=== PATIENT | female | born 1930 | race African-American/Black ===

== ENCOUNTER 2018-11-04 17:21 | Inpatient (IN) | payer MEDICAID, MEDICARE, OTHER ==
[~2018-11-04] VITALS: Ht 162.6 cm; Wt 82.6 kg
[2018-11-04] MEDS ORDERED: ACETAMINOPHEN 325MG TABLET PO STA (17:58)
[2018-11-04] MEDS ORDERED: SODIUM CHLORIDE 0.9% 1,000 ML IV ONE (17:58)
[2018-11-04] MEDS ORDERED: VANCOMYCIN 1 G PREMIX 200 ML IV ONE (18:00)
[2018-11-04] MEDS ORDERED: PIPERACILLIN/TAZ 3.375G PREMIX 50 ML IV ONE (18:00)
[2018-11-04] MEDS ORDERED: SODIUM CHLORIDE 0.9% 1000ML BAG (SEPSIS BOLUS) IV ONE (18:00)
[2018-11-04 18:44] LABS: CLARITY URINE CLEAR (CLEAR); COLOR URINE YELLOW (YELLOW); KETONES URINE TRACE (NEGATIVE); LEUKOCYTE ESTERASE URINE TRACE (NEGATIVE); NITRITE URINE NEGATIVE (NEGATIVE); OCCULT BLOOD URINE NEGATIVE (NEGATIVE); PROTEIN URINE NEGATIVE (NEGATIVE); SPECIFIC GRAVITY URINE 1.015 (1.005-1.030)
[2018-11-04 18:53] LABS: BASOPHILS % 0.8 % (0.0-2.0); EOSINOPHILS % 0.9 % (0.0-5.0); HEMATOCRIT. 22.9 % (36.0-48.0); HEMOGLOBIN. 7.2 g/dL (12.0-16.0); LYMPHOCYTES % 33.3 % (20.0-50.0); MEAN CORPUSCULAR HEMOGLOBIN 25.8 pg (28.0-32.0); MEAN CORPUSCULAR VOLUME 81.8 fL (81.0-99.0); MEAN PLATELET VOLUME 9.1 fl (7.4-10.4); MONOCYTES % 6.4 % (2.0-8.0); NEUTROPHILS % 58.6 % (40.0-76.0); PLATELET 148 x1000/uL (130-400); RED CELL DISTRIBUTION WIDTH 21.4 % (11.6-14.6)
[2018-11-04 18:57] LABS: CHLORIDE 106 mEq/L (98-107)
[2018-11-04 18:58] LABS: PROTHROMBIN TIME 10.7 sec (9.6-11.0)
[2018-11-04] MEDS ORDERED: HYDRALAZINE 20MG/ML VIAL IV ONE (22:30)
[2018-11-04 23:25] VITALS: BP 186/79
[2018-11-05] VITALS: BP 186/79
[2018-11-05] MEDS: CEFTRIAXONE 1 G PREMIX 50 ML IV SCH ×2 (03:40→14:32)
[2018-11-05] MEDS: CLONIDINE 0.1MG TABLET PO PRN ×2 (03:40→09:30)
[2018-11-05 04:00] VITALS: BP 159/75
[2018-11-05 08:00] VITALS: BP 173/85
[2018-11-05 08:35] LABS: CHLORIDE 107 mEq/L (98-107)
[2018-11-05] MEDS ORDERED: HEPARIN 5000 UNITS/ML VIAL SUBCUT SCH (09:00)
[2018-11-05] MEDS ORDERED: POTASSIUM CHLORIDE 20MEQ/PACKET PO NR (10:00)
[2018-11-05 11:06] LABS: HEMATOCRIT. 36.4 % (36.0-48.0); MEAN CORPUSCULAR HEMOGLOBIN 25.9 pg (28.0-32.0); MEAN CORPUSCULAR VOLUME 80.5 fL (81.0-99.0); MEAN PLATELET VOLUME 9.5 fl (7.4-10.4); PLATELET 275 x1000/uL (130-400); RED BLOOD CELL COUNT 4.52 mill/uL (4.2-5.4); RED CELL DISTRIBUTION WIDTH 22.1 % (11.6-14.6)
[2018-11-05 11:08] LABS: HEMOGLOBIN. 11.7 g/dL (12.0-16.0)
[2018-11-05 12:00] VITALS: BP 178/72
[2018-11-05 12:24] LABS: PLATELET ESTIMATE NORMAL
[2018-11-05] MEDS ORDERED: LORAZEPAM 2MG/ML CPJ IV NR (12:45)
[2018-11-05] MEDS ORDERED: DIGOXIN 500MCG/2ML AMP IV NR (15:00)
[2018-11-05 16:00] VITALS: BP 156/58
[2018-11-05] MEDS ORDERED: HYDRALAZINE 20MG/ML VIAL IV SCH (16:00)
[2018-11-05] MEDS: LOSARTAN POTASSIUM 100 MG TABLET PO SCH ×2 (16:00→16:58)
[2018-11-05] MEDS ORDERED: DIGOXIN 500MCG/2ML AMP IV ONE ×2 (18:30→22:30)
[2018-11-05 20:07] VITALS: BP 110/89
[2018-11-05] MEDS: AMLODIPINE 5MG TABLET PO SCH (21:00)
[2018-11-05] MEDS: HYDRALAZINE HCL 50MG TABLET PO SCH (21:04)
[2018-11-05] MEDS ORDERED: HYDRALAZINE HCL 50MG TABLET PO SCH (22:00)
[2018-11-05] MEDS: HYDRALAZINE 20MG/ML VIAL IV PRN (23:58)
[2018-11-06] VITALS (8 sets, daily range): BP systolic 129–191; BP diastolic 48–120
[2018-11-06] MEDS: CEFTRIAXONE 1 G PREMIX 50 ML IV SCH ×2 (03:05→15:32)
[2018-11-06] MEDS: HYDRALAZINE HCL 50MG TABLET PO SCH ×3 (06:10→21:38)
[2018-11-06] MEDS: AMLODIPINE 5MG TABLET PO SCH ×2 (08:28→21:00)
[2018-11-06] MEDS: LOSARTAN POTASSIUM 100 MG TABLET PO SCH (08:28)
[2018-11-06] MEDS ORDERED: HYDRALAZINE 20MG/ML VIAL IV NR (08:45)
[2018-11-06] MEDS: DEXTROSE 5% WATER 1,000 ML IV SCH (11:44)
[2018-11-06] MEDS: HYDRALAZINE 20MG/ML VIAL IV PRN (16:01)
[2018-11-06 17:01] LABS: HEMATOCRIT. 36.1 % (36.0-48.0); HEMOGLOBIN. 11.8 g/dL (12.0-16.0); MEAN CORPUSCULAR HEMOGLOBIN 26.3 pg (28.0-32.0); MEAN CORPUSCULAR VOLUME 80.5 fL (81.0-99.0); MEAN PLATELET VOLUME 9.6 fl (7.4-10.4); PLATELET 247 x1000/uL (130-400); RED BLOOD CELL COUNT 4.48 mill/uL (4.2-5.4); RED CELL DISTRIBUTION WIDTH 22.1 % (11.6-14.6)
[2018-11-06 17:23] LABS: CHLORIDE 109 mEq/L (98-107)
[2018-11-06] MEDS ORDERED: DIGOXIN 125MCG TABLET PO SCH (18:00)
[2018-11-07] VITALS: BP 134/60
[2018-11-07] MEDS ORDERED: LORAZEPAM 2MG/ML CPJ IV PRN (00:30)
[2018-11-07] MEDS: DEXTROSE 5% WATER 1,000 ML IV SCH ×2 (00:57→15:15)
[2018-11-07] MEDS: HYDRALAZINE HCL 50MG TABLET PO SCH (02:24)
[2018-11-07] MEDS: CEFTRIAXONE 1 G PREMIX 50 ML IV SCH ×2 (02:24→15:07)
[2018-11-07 04:00] VITALS: BP 145/75
[2018-11-07 08:16] VITALS: BP 170/66
[2018-11-07] MEDS: HYDRALAZINE 20MG/ML VIAL IV PRN ×2 (08:53→21:08)
[2018-11-07] MEDS: AMLODIPINE 5MG TABLET PO SCH ×2 (09:00→21:00)
[2018-11-07] MEDS: LOSARTAN POTASSIUM 100 MG TABLET PO SCH (09:00)
[2018-11-07 12:00] VITALS: BP 153/71
[2018-11-07 12:25] LABS: PLATELET ESTIMATE NORMAL
[2018-11-07] MEDS: HYDRALAZINE HCL 100MG TABLET PO SCH ×2 (14:00→21:11)
[2018-11-07] MEDS ORDERED: DIPHENHYDRAMINE 50MG/ML VIAL IV PRN (15:15)
[2018-11-07] MEDS ORDERED: IPRATROPIUM/ALBUTEROL 0.5-3(2.5)MG/3ML NEB HHN PRN (15:15)
[2018-11-07] MEDS ORDERED: HYDROCODONE/ACETAMINOPHEN 5/325MG TABLET PO PRN (15:15)
[2018-11-07] MEDS ORDERED: ONDANSETRON HCL 4MG/2ML INJ IV PRN (15:15)
[2018-11-07 16:00] VITALS: BP 140/87
[2018-11-07] MEDS ORDERED: METOPROLOL TARTRATE 25MG TABLET PO NR (16:00)
[2018-11-07 16:16] LABS: HEMATOCRIT 38.6 % (36.0-48.0); HEMOGLOBIN 12.3 g/dL (12.0-16.0); MEAN CORPUSCULAR HEMOGLOBIN 25.8 pg (28.0-32.0); PLATELET 252 x1000/uL (130-400); RED BLOOD CELL COUNT 4.77 mill/uL (4.2-5.4); RED CELL DISTRIBUTION WIDTH 22.4 % (11.6-14.6)
[2018-11-07 16:31] LABS: CHLORIDE 106 mEq/L (98-107)
[2018-11-07 16:37] LABS: LDL CHOLESTEROL 70 mg/dL (5-100)
[2018-11-07 16:38] LABS: HDL CHOLESTEROL 59 mg/dL (40-59)
[2018-11-07] MEDS: LORAZEPAM 2MG/ML CPJ IV PRN (18:22)
[2018-11-07] MEDS: DIGOXIN 500MCG/2ML AMP IV SCH (18:59)
[2018-11-07 20:00] VITALS: BP 159/77
[2018-11-07] MEDS: METOPROLOL TARTRATE 25MG TABLET PO SCH (21:00)
[2018-11-08] VITALS: BP 150/48
[2018-11-08] MEDS: CEFTRIAXONE 1 G PREMIX 50 ML IV SCH ×2 (02:57→15:16)
[2018-11-08 04:00] VITALS: BP 159/45
[2018-11-08] MEDS: DEXTROSE 5% WATER 1,000 ML IV SCH (05:11)
[2018-11-08] MEDS: HYDRALAZINE 20MG/ML VIAL IV PRN ×2 (05:16→14:12)
[2018-11-08] MEDS: HYDRALAZINE HCL 100MG TABLET PO SCH ×3 (05:17→21:31)
[2018-11-08 07:17] LABS: HEMATOCRIT 36.5 % (36.0-48.0); HEMOGLOBIN 11.8 g/dL (12.0-16.0); MEAN CORPUSCULAR HEMOGLOBIN 26.2 pg (28.0-32.0); MEAN CORPUSCULAR VOLUME 80.8 fL (81.0-99.0); PLATELET 275 x1000/uL (130-400); RED BLOOD CELL COUNT 4.52 mill/uL (4.2-5.4); RED CELL DISTRIBUTION WIDTH 22.4 % (11.6-14.6)
[2018-11-08 08:00] VITALS: BP 132/67
[2018-11-08] MEDS: METOPROLOL TARTRATE 25MG TABLET PO SCH ×2 (09:00→21:31)
[2018-11-08] MEDS: AMLODIPINE 5MG TABLET PO SCH ×2 (09:00→21:31)
[2018-11-08] MEDS: LOSARTAN POTASSIUM 100 MG TABLET PO SCH (09:00)
[2018-11-08] MEDS ORDERED: LIDOCAINE HCL 1% 20ML VIAL (Pyxis) INJ ONE (10:56)
[2018-11-08 12:00] VITALS: BP 155/46
[2018-11-08 16:00] VITALS: BP 131/47
[2018-11-08] MEDS: DEXT 5%/0.9% NACL 1,000 ML IV SCH (17:16)
[2018-11-08] MEDS: DIGOXIN 500MCG/2ML AMP IV SCH (18:10)
[2018-11-08 20:00] VITALS: BP 135/83
[2018-11-08] MEDS: PANTOPRAZOLE SODIUM 40 MG/VIAL IV SCH (21:30)
[2018-11-08] MEDS: ACETAMINOPHEN 325MG TABLET PO PRN (21:52)
[2018-11-09] VITALS: BP 137/60
[2018-11-09] MEDS: CEFTRIAXONE 1 G PREMIX 50 ML IV SCH ×2 (02:05→14:17)
[2018-11-09] MEDS: DEXT 5%/0.9% NACL 1,000 ML IV SCH (02:44)
[2018-11-09 04:00] VITALS: BP 132/68
[2018-11-09] MEDS: LORAZEPAM 2MG/ML CPJ IV PRN (04:46)
[2018-11-09] MEDS: HYDRALAZINE HCL 100MG TABLET PO SCH ×3 (05:22→21:03)
[2018-11-09 07:19] LABS: INR 1.1; PARTIAL THROMBOPLASTIN TIME 27.3 sec (23.4-31.0); PROTHROMBIN TIME 10.9 sec (9.6-11.0)
[2018-11-09 07:24] LABS: BASOPHILS % 0.6 % (0.0-2.0); EOSINOPHILS % 0.7 % (0.0-5.0); HEMATOCRIT. 35.2 % (36.0-48.0); HEMOGLOBIN. 11.5 g/dL (12.0-16.0); LYMPHOCYTES % 18.2 % (20.0-50.0); MEAN CORPUSCULAR HEMOGLOBIN 26.3 pg (28.0-32.0); MEAN CORPUSCULAR VOLUME 80.3 fL (81.0-99.0); MEAN PLATELET VOLUME 9.2 fl (7.4-10.4); MONOCYTES % 11.7 % (2.0-8.0); NEUTROPHILS % 68.8 % (40.0-76.0); PLATELET 260 x1000/uL (130-400); RED BLOOD CELL COUNT 4.38 mill/uL (4.2-5.4)
[2018-11-09 07:28] LABS: CHLORIDE 107 mEq/L (98-107)
[2018-11-09 08:00] VITALS: BP 158/56
[2018-11-09] MEDS: METOPROLOL TARTRATE 25MG TABLET PO SCH ×2 (09:00→21:02)
[2018-11-09] MEDS: LOSARTAN POTASSIUM 100 MG TABLET PO SCH (09:00)
[2018-11-09] MEDS: AMLODIPINE 5MG TABLET PO SCH ×2 (09:00→21:02)
[2018-11-09] MEDS: PANTOPRAZOLE SODIUM 40 MG/VIAL IV SCH ×2 (09:15→21:02)
[2018-11-09] MEDS ORDERED: MIDAZOLAM HCL 5 MG/5 ML VIAL ONE (11:50)
[2018-11-09] MEDS ORDERED: FENTANYL CITRATE/PF 50MCG/ML 2ML VIAL ONE (11:51)
[2018-11-09] MEDS ORDERED: FENTANYL CITRATE/PF 50MCG/ML 2ML VIAL IV PRN (12:10)
[2018-11-09] MEDS ORDERED: MIDAZOLAM HCL 5 MG/5 ML VIAL IV PRN (12:11)
[2018-11-09 13:45] VITALS: BP 202/75
[2018-11-09 16:00] VITALS: BP 201/91
[2018-11-09 16:30] VITALS: BP 177/60
[2018-11-09] MEDS: HYDRALAZINE 20MG/ML VIAL IV PRN (16:31)
[2018-11-09] MEDS: DIGOXIN 500MCG/2ML AMP IV SCH (17:19)
[2018-11-10 00:39] VITALS: BP 162/82
[2018-11-10] MEDS: DEXT 5%/0.9% NACL 1,000 ML IV SCH ×2 (01:54→17:05)
[2018-11-10] MEDS: HYDRALAZINE 20MG/ML VIAL IV PRN (01:55)
[2018-11-10] MEDS: CEFTRIAXONE 1 G PREMIX 50 ML IV SCH ×2 (01:58→15:39)
[2018-11-10 04:00] VITALS: BP 167/75
[2018-11-10] MEDS: HYDRALAZINE HCL 100MG TABLET PO SCH ×3 (05:55→21:10)
[2018-11-10 08:00] VITALS: BP 163/58
[2018-11-10 09:12] LABS: HEMATOCRIT 36.1 % (36.0-48.0); HEMOGLOBIN 11.6 g/dL (12.0-16.0); MEAN CORPUSCULAR HEMOGLOBIN 25.8 pg (28.0-32.0); MEAN CORPUSCULAR VOLUME 80.1 fL (81.0-99.0); PLATELET 288 x1000/uL (130-400); RED CELL DISTRIBUTION WIDTH 22.5 % (11.6-14.6)
[2018-11-10 09:21] LABS: CHLORIDE 109 mEq/L (98-107)
[2018-11-10] MEDS: LOSARTAN POTASSIUM 100 MG TABLET PO SCH (09:58)
[2018-11-10] MEDS: AMLODIPINE 5MG TABLET PO SCH ×2 (09:59→21:11)
[2018-11-10] MEDS: METOPROLOL TARTRATE 25MG TABLET PO SCH (09:59)
[2018-11-10] MEDS ORDERED: METOPROLOL TARTRATE 25MG TABLET PO NR (11:00)
[2018-11-10 12:00] VITALS: BP 170/68
[2018-11-10] MEDS: CLONIDINE 0.1MG TABLET PO PRN (14:21)
[2018-11-10] MEDS: PIPERACILLIN/TAZOBACTAM 2.25 G in DEXTROSE 5% WATER 50 ML IV SCH (14:21)
[2018-11-10 16:00] VITALS: BP 96/56
[2018-11-10] MEDS ORDERED: VANCOMYCIN 1 G PREMIX 200 ML IV SCH (17:00)
[2018-11-10] MEDS: DIGOXIN 500MCG/2ML AMP IV SCH (18:07)
[2018-11-10] MEDS: METOPROLOL TARTRATE 50MG TABLET PO SCH (21:11)
[2018-11-10 23:57] VITALS: BP 131/51
[2018-11-11] MEDS: PIPERACILLIN/TAZOBACTAM 2.25 G in DEXTROSE 5% WATER 50 ML IV SCH ×5 (01:08→23:03)
[2018-11-11 04:49] VITALS: BP 121/36
[2018-11-11] MEDS: HYDRALAZINE HCL 100MG TABLET PO SCH ×3 (05:23→21:41)
[2018-11-11 06:34] LABS: BASOPHILS % 0.3 % (0.0-2.0); HEMATOCRIT. 31.3 % (36.0-48.0); HEMOGLOBIN. 10.1 g/dL (12.0-16.0); LYMPHOCYTES % 7.2 % (20.0-50.0); MEAN CORPUSCULAR HEMOGLOBIN 26.1 pg (28.0-32.0); MEAN CORPUSCULAR VOLUME 81.2 fL (81.0-99.0); MEAN PLATELET VOLUME 9.2 fl (7.4-10.4); MONOCYTES % 9.2 % (2.0-8.0); NEUTROPHILS % 83.3 % (40.0-76.0); PLATELET 242 x1000/uL (130-400); RED BLOOD CELL COUNT 3.85 mill/uL (4.2-5.4); RED CELL DISTRIBUTION WIDTH 22.2 % (11.6-14.6)
[2018-11-11 08:00] VITALS: BP 132/39
[2018-11-11] MEDS: METOPROLOL TARTRATE 50MG TABLET PO SCH ×2 (09:15→21:42)
[2018-11-11] MEDS: AMLODIPINE 5MG TABLET PO SCH ×2 (09:15→21:42)
[2018-11-11] MEDS: LOSARTAN POTASSIUM 100 MG TABLET PO SCH (09:15)
[2018-11-11] MEDS ORDERED: VANCOMYCIN 750 MG PREMIX 150 ML IV SCH ×2 (11:00→18:00)
[2018-11-11] MEDS: DEXT 5%/0.9% NACL 1,000 ML IV SCH (11:21)
[2018-11-11 11:51] LABS: BG BASE EXCESS -2.7 mmol/L (-2.0-2.0); BG CARBOXYHEMOGLOBIN 0.1 % (0.5-1.5); BG DEOXYHEMOGLOBIN 10.4 % (0.0-5.0); BG FRACTION INSPIRED OXYGEN 21; BG HCO3 ACT 21.2 mmol/L (22.0-26.0); BG METHEMOGLOBIN 0.4 % (0.0-1.5); BG OXYGEN SATURATION 89.5 % (92.0-98.5); BG OXYHEMOGLOBIN 89.1 % (94.0-97.0); BG PCO2 33.7 mmHg (35.0-45.0); BG PH 7.417 (7.350-7.450); BG PO2 55.3 mmHg (75.0-100.0); BG SAMPLE SITE LEFT BRACHIAL; BG TOTAL HEMOGLOBIN 11.3 g/dL (12.0-18.0); BG VENT MODE ROOM AIR
[2018-11-11 12:00] VITALS: BP 121/52
[2018-11-11 16:00] VITALS: BP 128/59
[2018-11-11] MEDS: DIGOXIN 500MCG/2ML AMP IV SCH (19:10)
[2018-11-11 20:00] VITALS: BP 178/63
[2018-11-11] MEDS: ACETAMINOPHEN 325MG TABLET PO PRN (21:41)
[2018-11-12] VITALS: BP 161/68
[2018-11-12 04:00] VITALS: BP 176/68
[2018-11-12] MEDS: PIPERACILLIN/TAZOBACTAM 2.25 G in DEXTROSE 5% WATER 50 ML IV SCH ×3 (05:56→18:45)
[2018-11-12] MEDS: HYDRALAZINE HCL 100MG TABLET PO SCH ×3 (05:57→22:00)
[2018-11-12 07:47] LABS: HEMATOCRIT. 32.7 % (36.0-48.0); HEMOGLOBIN. 10.5 g/dL (12.0-16.0); MEAN CORPUSCULAR HEMOGLOBIN 25.9 pg (28.0-32.0); MEAN PLATELET VOLUME 9.5 fl (7.4-10.4); PLATELET 288 x1000/uL (130-400); RED BLOOD CELL COUNT 4.03 mill/uL (4.2-5.4); RED CELL DISTRIBUTION WIDTH 22.6 % (11.6-14.6)
[2018-11-12 08:00] VITALS: BP 184/49
[2018-11-12 08:18] LABS: DIGOXIN 1.3 ng/mL (0.9-2.0)
[2018-11-12] MEDS: CLONIDINE 0.1MG TABLET PO PRN (09:00)
[2018-11-12] MEDS: AMLODIPINE 5MG TABLET PO SCH ×2 (09:00→21:59)
[2018-11-12] MEDS: LOSARTAN POTASSIUM 100 MG TABLET PO SCH (09:00)
[2018-11-12] MEDS: METOPROLOL TARTRATE 50MG TABLET PO SCH (09:01)
[2018-11-12] MEDS: DEXT 5%/0.9% NACL 1,000 ML IV SCH (11:44)
[2018-11-12 12:00] VITALS: BP 119/57
[2018-11-12] MEDS ORDERED: DIATR MEGLU/DIATRIZOATE SOLN 30ML ONE (12:55)
[2018-11-12 13:19] LABS: PLATELET ESTIMATE NORMAL
[2018-11-12] MEDS: ACETAMINOPHEN 325MG TABLET PO PRN (14:38)
[2018-11-12] MEDS: VANCOMYCIN 750 MG PREMIX 150 ML IV SCH (15:20)
[2018-11-12 16:00] VITALS: BP 119/46
[2018-11-12] MEDS ORDERED: DILTIAZEM HCL 5MG/ML 5ML VIAL IV PRN (18:00)
[2018-11-12] MEDS: DIGOXIN 125MCG TABLET PO SCH (18:23)
[2018-11-12 20:00] VITALS: BP 140/84
[2018-11-12] MEDS: METOPROLOL TARTRATE 100MG TABLET PO SCH (22:00)
[2018-11-13] VITALS: BP 143/84
[2018-11-13] MEDS: MEROPENEM 500 MG in SODIUM CHLORIDE 0.9% 50 ML IV SCH ×3 (00:35→23:48)
[2018-11-13] MEDS: DEXT 5%/0.9% NACL 1,000 ML IV SCH ×3 (03:34→23:46)
[2018-11-13 04:00] VITALS: BP 126/57
[2018-11-13] MEDS: HYDRALAZINE HCL 100MG TABLET PO SCH ×3 (05:57→22:00)
[2018-11-13 06:43] LABS: HEMATOCRIT. 30.4 % (36.0-48.0); HEMOGLOBIN. 9.7 g/dL (12.0-16.0); MEAN CORPUSCULAR HEMOGLOBIN 25.9 pg (28.0-32.0); MEAN CORPUSCULAR VOLUME 81.1 fL (81.0-99.0); MEAN PLATELET VOLUME 9.6 fl (7.4-10.4); PLATELET 270 x1000/uL (130-400); RED BLOOD CELL COUNT 3.75 mill/uL (4.2-5.4); RED CELL DISTRIBUTION WIDTH 22.8 % (11.6-14.6)
[2018-11-13 07:49] VITALS: BP 128/34
[2018-11-13] MEDS: VANCOMYCIN 750 MG PREMIX 150 ML IV SCH (08:19)
[2018-11-13] MEDS: LOSARTAN POTASSIUM 100 MG TABLET PO SCH (08:19)
[2018-11-13] MEDS: AMLODIPINE 5MG TABLET PO SCH (08:19)
[2018-11-13] MEDS: METOPROLOL TARTRATE 100MG TABLET PO SCH ×2 (08:20→21:00)
[2018-11-13 10:07] LABS: PLATELET ESTIMATE NORMAL
[2018-11-13 11:44] VITALS: BP 98/47
[2018-11-13 15:32] VITALS: BP 151/46
[2018-11-13] MEDS: FLUCONAZOLE 100MG TABLET PO SCH (15:32)
[2018-11-13] MEDS: NIFEDIPINE 10MG CAPSULE PO SCH (18:17)
[2018-11-13] MEDS: DIGOXIN 125MCG TABLET PO SCH (18:17)
[2018-11-13 20:34] VITALS: BP 142/46
[2018-11-14] VITALS: BP_SYST 125; BP_SYST 145; BP_DIAS 43; BP_DIAS 45
[2018-11-14 04:00] VITALS: BP 132/46
[2018-11-14] MEDS: HYDRALAZINE HCL 100MG TABLET PO SCH ×2 (06:00→14:00)
[2018-11-14] MEDS: NIFEDIPINE 10MG CAPSULE PO SCH ×2 (06:00→14:00)
[2018-11-14] MEDS: VANCOMYCIN HCL 1000 MG/20 ML ORAL PO SCH ×4 (06:00→17:31)
[2018-11-14 07:19] LABS: HEMATOCRIT. 30.9 % (36.0-48.0); MEAN CORPUSCULAR VOLUME 80.8 fL (81.0-99.0); MEAN PLATELET VOLUME 9.4 fl (7.4-10.4); PLATELET 302 x1000/uL (130-400); RED BLOOD CELL COUNT 3.83 mill/uL (4.2-5.4); RED CELL DISTRIBUTION WIDTH 22.7 % (11.6-14.6)
[2018-11-14 08:00] VITALS: BP 106/82
[2018-11-14] MEDS: METOPROLOL TARTRATE 100MG TABLET PO SCH (08:54)
[2018-11-14] MEDS: LOSARTAN POTASSIUM 100 MG TABLET PO SCH (08:54)
[2018-11-14] MEDS: FLUCONAZOLE 100MG TABLET PO SCH (08:54)
[2018-11-14 10:52] LABS: PLATELET ESTIMATE NORMAL
[2018-11-14] MEDS: DEXT 5%/0.9% NACL 1,000 ML IV SCH ×2 (11:37→20:17)
[2018-11-14] MEDS: MEROPENEM 500 MG in SODIUM CHLORIDE 0.9% 50 ML IV SCH (11:39)
[2018-11-14 12:00] VITALS: BP 97/50
[2018-11-14 16:00] VITALS: BP 119/56
[2018-11-14] MEDS: MICAFUNGIN 100 MG in SODIUM CHLORIDE 0.9% 100 ML IV SCH (17:30)
[2018-11-14] MEDS: DIGOXIN 125MCG TABLET PO SCH (17:31)
[2018-11-14 20:00] VITALS: BP 126/64
[2018-11-15] VITALS: BP 145/45
[2018-11-15] MEDS: MEROPENEM 500 MG in SODIUM CHLORIDE 0.9% 50 ML IV SCH ×2 (00:39→13:24)
[2018-11-15 04:00] VITALS: BP 153/66
[2018-11-15] MEDS: DEXT 5%/0.9% NACL 1,000 ML IV SCH ×2 (05:57→16:36)
[2018-11-15] MEDS: VANCOMYCIN HCL 1000 MG/20 ML ORAL PO SCH ×2 (05:57)
[2018-11-15 07:48] VITALS: BP 149/55
[2018-11-15 12:00] VITALS: BP 172/57
[2018-11-15 13:29] LABS: HEMATOCRIT. 31.1 % (36.0-48.0); HEMOGLOBIN. 9.9 g/dL (12.0-16.0); MEAN CORPUSCULAR HEMOGLOBIN 25.7 pg (28.0-32.0); MEAN PLATELET VOLUME 8.8 fl (7.4-10.4); PLATELET 315 x1000/uL (130-400); RED BLOOD CELL COUNT 3.84 mill/uL (4.2-5.4); RED CELL DISTRIBUTION WIDTH 23.2 % (11.6-14.6)
[2018-11-15 13:32] LABS: CHLORIDE 122 mEq/L (98-107)
[2018-11-15 14:00] LABS: PLATELET ESTIMATE NORMAL
[2018-11-15 16:07] VITALS: BP 156/49
[2018-11-15] MEDS: MICAFUNGIN 100 MG in SODIUM CHLORIDE 0.9% 100 ML IV SCH (17:36)
[2018-11-15] MEDS: DIGOXIN 125MCG TABLET PO SCH (18:00)
[2018-11-15] MEDS: METRONIDAZOLE 500 MG PREMIX 100 ML IV SCH (19:04)
[2018-11-15 20:00] VITALS: BP 166/76
[2018-11-15] MEDS: HYDRALAZINE 20MG/ML VIAL IV PRN (22:37)
[2018-11-16] VITALS: BP 163/67
[2018-11-16] MEDS: METRONIDAZOLE 500 MG PREMIX 100 ML IV SCH ×2 (00:12→09:09)
[2018-11-16] MEDS: MEROPENEM 500 MG in SODIUM CHLORIDE 0.9% 50 ML IV SCH ×2 (00:12→12:15)
[2018-11-16] MEDS: DEXT 5%/0.9% NACL 1,000 ML IV SCH (00:13)
[2018-11-16 04:00] VITALS: BP 178/43
[2018-11-16] MEDS: HYDRALAZINE 20MG/ML VIAL IV PRN (05:15)
[2018-11-16 07:14] LABS: HEMATOCRIT. 34.6 % (36.0-48.0); HEMOGLOBIN. 11.2 g/dL (12.0-16.0); MEAN CORPUSCULAR HEMOGLOBIN 26.8 pg (28.0-32.0); RED BLOOD CELL COUNT 4.16 mill/uL (4.2-5.4); RED CELL DISTRIBUTION WIDTH 22.3 % (11.6-14.6)
[2018-11-16 08:00] VITALS: BP 176/61
[2018-11-16 08:22] LABS: CHLORIDE 124 mEq/L (98-107)
[2018-11-16 10:54] LABS: NUCLEATED RED BLOOD CELLS 1 /100 WBC
[2018-11-16 11:14] VITALS: BP 148/69
[2018-11-16 11:19] VITALS: BP 139/69
[2018-11-16 11:29] VITALS: BP 152/48
== END 2018-11-16 14:03 | disposition hospice, home (50) | DRG 64 ==
LOC: ER 17:21 → 7WST 20:32 → EDBEDREQ 20:34 → EDBEDREQTM 20:34 → EDBEDREQSVC 20:34 → ENRESERV 22:40
PROVIDERS: ADMIT Internal Medicine; ATTEND Internal Medicine
PROC: 0DH63UZ Insertion of Feeding Device into Stomach, Percutaneous Approach (ICD-10-PCS; principal; 2018-11-09)
DX: I61.0 Nontraumatic intracerebral hemorrhage in hemisphere, subcortical (principal); G93.41 Metabolic encephalopathy; I50.33 Acute on chronic diastolic (congestive) heart failure; K65.9 Peritonitis, unspecified; A41.9 Sepsis, unspecified organism; I47.1 Supraventricular tachycardia; N39.0 Urinary tract infection, site not specified; L02.211 Cutaneous abscess of abdominal wall; B49 Unspecified mycosis; I31.3 Pericardial effusion (noninflammatory); K94.23 Gastrostomy malfunction; D64.9 Anemia, unspecified; F03.90 Unspecified dementia, unspecified severity, without behavioral disturbance, psychotic disturbance, mood disturbance, and anxiety; R62.7 Adult failure to thrive; I11.0 Hypertensive heart disease with heart failure; I27.20 Pulmonary hypertension, unspecified; R13.12 Dysphagia, oropharyngeal phase; Y83.8 Other surgical procedures as the cause of abnormal reaction of the patient, or of later complication, without mention of misadventure at the time of the procedure; Z66 Do not resuscitate; I25.10 Atherosclerotic heart disease of native coronary artery without angina pectoris; K43.9 Ventral hernia without obstruction or gangrene; K52.9 Noninfective gastroenteritis and colitis, unspecified; N28.9 Disorder of kidney and ureter, unspecified; Z51.5 Encounter for palliative care; Z68.31 Body mass index [BMI] 31.0-31.9, adult; Z74.01 Bed confinement status; Y92.89 Other specified places as the place of occurrence of the external cause; I16.0 Hypertensive urgency
CPT/HCPCS: 36415; 36600; 71045; 74018; 74176; 80048; 80061; 80162; 80202; 81003; 82375; 82805; 82962; 83036; 83605; 83735; 83880; 84145; 84443; 84484; 85027; 87070; 87106; 92610; 93005; 93306; 93970; 96365; 97162; 97530; 99291; A6261; C1893; C9113; J0360; J0696; J1160; J1200; J2060; J2185; J2248; J2250; J2405; J2543; J3010; J3370; J3490; J7030; J7040; J7042; J7050; J7060; J7070; Q9963